=== PATIENT | female | born 1945 | race Caucasian/White ===

== ENCOUNTER 2018-03-27 08:43 | Emergency (ER) | payer OTHER ==
[2018-03-27] MEDS: IBUPROFEN 800 MG TAB PO ×2 (10:27→10:30)
[2018-03-27] MEDS: PENICILLIN G BENZ 1.2 MIL UNIT SYG IM (10:28)
[2018-03-27] MEDS: IBUPROFEN LIQUID (PED) 20 MG/ML CUP PO (10:51)
[2018-03-27] MEDS: ONDANSETRON (ODT) 4 MG TAB ODT (10:57)
[2018-03-27] MEDS: ACETAMINOPHEN 500 MG TAB PO (10:58)
== END 2018-03-27 12:32 | disposition home or self-care (01) ==
LOC: E/R 08:43
DX: J02.9 Acute pharyngitis, unspecified (principal); I10 Essential (primary) hypertension
CPT/HCPCS: 96372; 99284-25

== ENCOUNTER 2019-04-20 09:01 | Emergency (ER) | payer OTHER ==
[2019-04-20] MEDS: DEXAMETHASONE 10 MG/ML 1 ML INJ IM (09:31)
[2019-04-20] MEDS: ALBUTEROL 0.083% (NEB) 2.5 MG/3 ML AMP HHN (09:38)
[2019-04-20] MEDS: IPRATROPIUM (NEB) 0.5 MG/2.5 ML AMP HHN (09:38)
[2019-04-20] MEDS ORDERED: PSEUDOEPHEDRINE 30 MG TAB PO (10:00)
[2019-04-25] MEDS ORDERED: PROPOFOL 20 ML (09:21)
[2019-04-25] MEDS ORDERED: EPHEDrine 25 MG/5 ML SYG (09:22)
== END 2019-04-20 10:38 | disposition home or self-care (01) ==
LOC: FTE 09:01
DX: R05 Cough (principal); I10 Essential (primary) hypertension
CPT/HCPCS: 71045; 94664; 96372; 99284-25